=== PATIENT | male | born 1955 | race Caucasian/White ===

== ENCOUNTER 2023-10-10 07:58 | Emergency (ER) | payer MEDICARE, SELFPAY ==
[2023-10-10] VITALS (7 sets, daily range): BP systolic 115–151; BP diastolic 70–94; PULSE 69–87; RESP 16–20; TEMP 36.8; O2SAT 97–98
--- NOTE | ~2023-10-10 | XR_ITS ---
EXAMINATION: XR chest 2V DATE: 10/10/2023 08:32 INDICATION: Chest pain. Palpitations. TECHNIQUE: Frontal and lateral views of the chest were obtained. COMPARISON: Chest single view 07/24/2017 FINDINGS: A calcified right lung nodule is consistent with old granulomatous disease. No pleural effu rehana or pneumothorax. The heart size is normal. There is mild chronic anterior wedging of multiple th oracic vertebral bodies. IMPRESSION: 1. No acute cardiopulmonary disease. Reviewed, dictated and finalized at location A.
--- NOTE | 2023-10-10 08:01 | ECG_ITS ---
Test Date: 2023-10-10 08:05:40 Measurements Intervals [place] Rate: 86 P: 50 CO: 161 QRS: 28 QRSD: 104 T: 8 QT: 320 QTc: 384 Interpretive Statements SINUS RHYTHM POSSIBLE LEFT ATRIAL ENLARGEMENT BASELINE ARTIFACT- I, III, AVR, AVL, AVF BORDERLINE ECG No previous ECG available for comparison Electronically Signed On 10-10-2023 08:07:08 CDT by David Leggett D.O.
[2023-10-10] MEDS: ASPIRIN 81 MG CHEWABLE TABLET 324 MG PO (08:14)
[2023-10-10 08:16] LABS: Basophils Percent Auto 0.5 % (0.2-1.2); Eosinophils Percent Auto 0.7 % (0-4.4); Hematocrit 44.8 % (42.0-52.0); Hemoglobin 16.3 g/dL (14.0-18.0); Immature Granulocyte Absolute 0.02 K/mm3 (0.00-0.031); Immature Granulocyte Percent A 0.5 % (0-0.5); Lymphocytes Absolute Auto 0.57 K/mm3 (0.9-3.2); Lymphocytes Percent Auto 13.8 % (18.3-44.2); Mean Corpuscular HGB Conc 36.4 g/dl (32-36); Mean Corpuscular Hemoglobin 33.5 pg (26-34); Mean Platelet Volume 10.5 fl (7.4-10.4); Monocytes Absolute Auto 0.4 K/mm3 (0.1-0.6); Monocytes Percent Auto 8.5 % (2.6-8.5); Neutrophils Absolute Auto 3.2 K/mm3 (1.3-6.7); Platelet Count Result 189 k/mm3 (150-375); Red Blood Count 4.87 M/mm3 (4.6-6.20); Red Cell Distribution Width 12.2 % (11.5-14.5); White Blood Count 4.1 K/mm3 (4.5-10.0)
[2023-10-10 08:27] LABS: Alanine Aminotransferase 22 U/L (6-50); Albumin Level 4.3 g/dL (3.5-5.1); Alkaline Phosphatase 77 U/L (38-126); Anion Gap 8 mmol/L (4-12); Aspartate Amino Transferase 22 U/L (17-59); Bilirubin,Total 0.8 mg/dL (0.2-1.3); Blood Urea Nitrogen 15 mg/dL (9-20); Calcium 8.9 mg/dL (8.4-10.2); Carbon Dioxide 25 mmol/L (22-30); Chloride 105 mmol/L (98-107); Estimated CRCL calculation 89 ml/min; Estimated Glomerular Filt Rate > 60; Glucose 133 mg/dL (65-110); Lipase 107 U/L (23-300); Potassium 3.8 mmol/L (3.4-5.0); Sodium 138 mmol/L (137-145)
[2023-10-10 08:33] LABS: Prothrombin Time 13.4 Seconds (11.1-14.7)
[2023-10-10 08:37] LABS: Troponin I < 0.012 ng/mL (0.000-0.034)
--- NOTE | 2023-10-10 09:19 | ED.GENADULT ---
HPI - General Adult General Chief complaint: Arrhythmia/Palpitations Stated complaint: heart rate is way up Time Seen by Provider: 10/10/23 08:27 History of Present Illness HPI narrative: Patient is 68-year-old gentleman who presents emergency department chief complaint of palpitations. Patient reports that feels as though his heart rates been fast and reports that today he checked his heart rate and blood pressure and his heart rate was in the low 100s. Patient reports no chest pain denies shortness of breath reports that his blood pressure was elevated but has had recent changes in his blood pressure medicine res currently on losartan. Related Data Home Medications Medication Instructions Recorded Confirmed losartan 25 mg tablet 25 mg QAM 10/10/23 10/10/23 Allergies Allergy/AdvReac Type Severity Reaction Status Date / Time No Known Allergies Allergy Unknown Verified 06/03/14 10:10 Review of Systems Review of Systems: A 10 system review of systems was completed on the patient and is negative except for what is stated in the HPI. Nursing and ancillary documentation was reviewed. Exam Narrative: GENERAL: Well-appearing, well-nourished, and in no acute distress. HEAD: Normocephalic, atraumatic. EYES: PERRLA and EOMI. ENT: Nares clear, no rhinorrhea or epistaxis. Mucous membranes moist. NECK: Supple. CHEST: Clear to auscultation. No respiratory distress. HEART: Regular rate and rhythm. No murmur heard. Normal peripheral pulses. ABDOMEN: Soft, nontender, nondistended, normal active bowel sounds. EXTREMITIES: Normal range of motion. No edema. SKIN: Warm, dry, no rash. NEURO: No focal deficits. Alert and oriented x3. PSYCH: Normal mood and affect. Course Vital Signs Vital signs: Vital Signs Temperature 36.8 C 10/10/23 08:07 Pulse Rate 82 10/10/23 08:07 Respiratory Rate 20 10/10/23 08:07 Blood Pressure 151/94 H 10/10/23 08:07 Pulse Oximetry 97 10/10/23 08:07 Oxygen Delivery Room Air 10/10/23 08:07 Temperature 36.8 C 10/10/23 08:07 Pulse Rate 87 10/10/23 10:25 Respiratory Rate 18 10/10/23 10:25 Blood Pressure 125/80 10/10/23 10:25 Pulse Oximetry 97 10/10/23 10:25 Oxygen Delivery Room Air 10/10/23 08:07 Medical Decision Making MDM Narrative Medical decision making narrative: Differential diagnosis includes dysrhythmia, electrolyte abnormality, dehydration, hypothyroidism, ACS Laboratory studies were obtained on the patient showed a white count of 4.1 hemoglobin 16.3 potassium was 3.8 magnesium was 2.0 troponin was 0 hour and 3 hour TSH was 0.819 EKG showed no acute ischemic changes no dysrhythmia Chest x-ray showed no focal infiltrate Vital Signs Vital Signs: Vital Signs Temperature 36.8 C 10/10/23 08:07 Pulse Rate 82 10/10/23 08:07 Respiratory Rate 20 10/10/23 08:07 Blood Pressure 151/94 H 10/10/23 08:07 Pulse Oximetry 97 10/10/23 08:07 Oxygen Delivery Room Air 10/10/23 08:07 Temperature 36.8 C 10/10/23 08:07 Pulse Rate 87 10/10/23 10:25 Respiratory Rate 18 10/10/23 10:25 Blood Pressure 125/80 10/10/23 10:25 Pulse Oximetry 97 10/10/23 10:25 Oxygen Delivery Room Air 10/10/23 08:07 Lab Data 10/10/23 08:08 10/10/23 08:08 Labs: Lab Results 10/10/23 10/10/23 10/10/23 Range/Units 08:08 09:07 11:10 WBC 4.1 L (4.5-10.0) K/mm3 RBC 4.87 (4.6-6.20) M/mm3 Hgb 16.3 (14.0-18.0) g/dL Hct 44.8 (42.0-52.0) % MCV 92.0 (80-100) fl MCH 33.5 (26-34) pg MCHC 36.4 H (32-36) g/dl RDW 12.2 (11.5-14.5) % Plt Count 189 (150-375) k/mm3 MPV 10.5 H (7.4-10.4) fl Immature Gran % (Auto) 0.5 (0-0.5) % Neut % (Auto) 76.0 H (45.5-73.1) % Lymph % (Auto) 13.8 L (18.3-44.2) % [place] % (Auto) 8.5 (2.6-8.5) % Eos % (Auto) 0.7 (0-4.4) % Baso % (Auto) 0.5 (0.2-1.2) % Lymph # (Auto) 0.57 L (0.9-3.2) K
[2023-10-10 10:24] LABS: Thyroid Stimulating Hormone Reflex 0.819 uIU/mL (0.465-4.68)
--- NOTE | 2023-10-10 10:51 | ECG_ITS ---
Test Date: 2023-10-10 11:01:51 Measurements Intervals [place] Rate: 68 P: 45 [place]: 174 QRS: 18 QRSD: 91 T: 17 QT: 359 QTc: 384 Interpretive Statements SINUS RHYTHM POSSIBLE LEFT ATRIAL ENLARGEMENT BORDERLINE ECG Compared to ECG 10/10/2023 08:05:40 No significant changes Electronically Signed On 10-10-2023 11:21:32 CDT by David Leggett D.O.
[2023-10-10 11:36] LABS: Troponin I < 0.012 ng/mL (0.000-0.034)
== END 2023-10-10 11:52 | disposition home or self-care (01) ==
PROVIDERS: Emergency Provider Emergency Medicine
DX: R00.2 Palpitations (principal)
CPT/HCPCS: 36415; 71046; 80053; 83690; 83735; 84443; 84484; 85025; 85610; 85730; 93005; 99284; A9270